=== PATIENT | female | born 1995 | race Caucasian/White ===

== ENCOUNTER 2020-03-30 08:59 | Emergency (ER) | payer OTHER ==
[2020-03-30 10:28] LABS: BASOPHIL % 0.3 % (0-2); PLATELET COUNT 290 x10^3mcL (130-400); RED CELL DISTRIBUTION WIDTH 12.7 % (11.5-14.5)
[2020-03-30 12:01] VITALS: BP 100/54
== END 2020-03-30 10:11 | disposition home or self-care (01) ==
LOC: ED 08:59
PROVIDERS: Emergency Medicine
DX: O20.0 Threatened abortion (principal); Z88.1 Allergy status to other antibiotic agents